=== PATIENT | female | born 1965 | race Caucasian/White ===

== ENCOUNTER 2018-09-07 07:47 | Outpatient (CLI) | payer OTHER ==
[2018-09-07] MEDS ORDERED: IBRERSARTAN PO (08:54)
[2018-09-07] MEDS ORDERED: PLAQUINIL PO (08:54)
[2018-09-07] MEDS ORDERED: MULTIVITAM9 MG/15 M1 PO (08:55)
[2018-09-07] MEDS ORDERED: CALCIUM500 M2 PO (08:56)
== END 2018-09-07 17:34 | disposition home or self-care (01) ==
LOC: LAB 07:47
DX: N62 Hypertrophy of breast (principal)

== ENCOUNTER 2018-09-11 05:50 | Inpatient (IN) | payer OTHER ==
[~2018-09-11] VITALS: Ht 152.4 cm; Wt 80.7 kg
[~2018-09-11 05:50] MED LIST: CALCIUM500 M2 PO; IBRERSARTAN PO; MULTIVITAM9 MG/15 M1 PO; PLAQUINIL PO
== END 2018-09-12 14:31 | disposition home or self-care (01) | DRG 621 ==
LOC: CIR.AMB 05:50 → SURH 16:18 → CIR.AMB 18:01 → SURH 09-12 14:31
PROVIDERS: Plastic Surgery
PROC: 0J083ZZ Alteration of Abdomen Subcutaneous Tissue and Fascia, Percutaneous Approach (ICD-10-PCS; 2018-09-11)
PROC: 0JB80ZZ Excision of Abdomen Subcutaneous Tissue and Fascia, Open Approach (ICD-10-PCS; principal; 2018-09-11 07:00)
PROC: 0HBV0ZZ Excision of Bilateral Breast, Open Approach (ICD-10-PCS; 2018-09-11 07:00)
DX: E65 Localized adiposity (principal); N62 Hypertrophy of breast; M62.08 Separation of muscle (nontraumatic), other site

== ENCOUNTER 2020-03-19 10:33 | Emergency (ER) | payer OTHER ==
[~2020-03-19] VITALS: Ht 152.4 cm; Wt 70.3 kg
[2020-03-19] MEDS ORDERED: KETO10TA2 PO (14:21)
[2020-03-19] MEDS ORDERED: SKELAXIN800 MG PO (14:21)
== END 2020-03-19 14:37 | disposition home or self-care (01) ==
LOC: ER 10:33
DX: S93.492A Sprain of other ligament of left ankle, initial encounter (principal); W10.8XXA Fall (on) (from) other stairs and steps, initial encounter; Y93.89 Activity, other specified; Y92.018 Other place in single-family (private) house as the place of occurrence of the external cause; Y99.8 Other external cause status

== ENCOUNTER 2022-10-30 14:13 | Outpatient (CLI) | payer OTHER ==
[~2022-10-30 14:13] MED LIST changes: +KETO10TA2 PO; +SKELAXIN800 MG PO
== END 2022-10-30 14:57 | disposition home or self-care (01) ==
LOC: RAD 14:13
PROVIDERS: ATTEND Orthopaedic Surgery
DX: M79.671 Pain in right foot (principal); M25.571 Pain in right ankle and joints of right foot

== ENCOUNTER 2024-05-29 10:12 | Inpatient (IN) | payer OTHER ==
[~2024-05-29] VITALS: Ht 152.4 cm; Wt 153.8 kg
[2024-05-29] MEDS ORDERED: MOUNJARO2.5 MG/0.5 SQ (10:17)
[2024-05-29] MEDS ORDERED: KETOROLAC TROMETHAMINE 60 MG VIAL IM ONE ×2 (10:30→10:31)
[2024-05-29] MEDS ORDERED: FAMOtidine 10 MG/ML (4ML VIAL) IV ONE (10:30)
[2024-05-29] MEDS ORDERED: 0.9 % SODIUM CHLORIDE 1,000 ML IV ONE (10:30)
[2024-05-29] MEDS ORDERED: FAMOTIDINE/PF 20 MG/2 ML VIAL ONE (10:31)
[2024-05-29 10:46] LABS: HEMATOCRIT 43.2 % (36.0-45.00); HEMOGLOBIN 14.9 g/dL (12.0-15.00); MEAN CELL VOLUME 93.8 fL (80.00-100.00); MEAN CORPUSCULAR HEMOGLOBIN 32.3 pg (27.00-32.0); MEAN CORPUSCULAR HGB CONC 34.4 g/dl (32.0-36.0); PLATELET COUNT 297 K/uL (150-450); RED BLOOD COUNT 4.61 M/uL (4.00-6.00); RED CELL DISTRIBUTION WIDTH 12.2 % (11.5-14.5)
[2024-05-29 11:16] LABS: ALBUMIN 3.5 gm/dL (3.4-5.0); BILIRUBIN TOTAL 1.02 mg/dL (0.3-1.2); CALCIUM 8.9 mg/dL (8.5-10.1); CREATININE SERUM 0.74 mg/dL (0.55-1.02); GFR 80.89; GLOBULINA 4.1 G/DL (2.4-3.5); POTASSIUM 3.56 mEq/L (3.5-5.1); TOTAL PROTEIN 7.6 gm/dL (6.4-8.2)
[2024-05-29 11:58] LABS: URINE APPEARANCE Clear; URINE BILIRRUBIN Negative (NEGATIVE); URINE BLOOD Moderate; URINE COLOR Yellow; URINE GLUCOSE Negative (NEGATIVE); URINE LEUKOCYTE Trace; URINE NITRATE Negative; URINE PROTEIN Negative (NEGATIVE); URINE UROBILINOGEN 0.2 E.U./dl
[2024-05-29 12:02] LABS: URINE EPITHELIAL CELLS 4.7 uL (0.0-38.8); URINE RBC 163.6 uL (0.0-20.8); URINE WBC 14.3 uL (0.0-23.2)
[2024-05-29 12:14] LABS: URINE BACTERIA 2.5 uL (0.0-1933); URINE KETONE 40 (NEGATIVE)
[2024-05-29 15:50] LABS: INR 1.15; PARTIAL THROMBOPLASTIN TIME 27.9 SECONDS (22.0-34.0); PROTHROMBIN TIME 12.4 SECONDS (9.0-11.5)
[2024-05-29] MEDS ORDERED: BUPIVACAINE HCL/MPF 0.5% 30ML VIAL ONE (19:28)
[2024-05-29] MEDS ORDERED: ONDANSETRON HCL 2 MG/ML VIAL IV PRN ×2 (20:15)
[2024-05-29] MEDS ORDERED: KETOROLAC TROMETHAMINE 30 MG VIAL IV PRN (20:15)
[2024-05-29] MEDS ORDERED: ENALAPRILAT DIHYDRATE 1.25 MG/ML VIAL IV PRN (20:15)
[2024-05-29] MEDS ORDERED: PIPERACILLIN/TAZOBACTAM SODIUM 3.375 GM VIAL IV SCH (21:00)
[2024-05-29] MEDS ORDERED: 0.9 % SODIUM CHLORIDE 1,000 ML IV SCH (21:00)
[2024-05-29] MEDS ORDERED: FAMOTIDINE/PF 20 MG/2 ML VIAL IV SCH (21:00)
[2024-05-29] MEDS ORDERED: BUPIVACAINE HCL 30 ML VIAL IJ ONE (21:00)
[2024-05-29] MEDS ORDERED: ACETAMINOPHEN 500 MG GEL..CAP PO PRN (21:15)
[2024-05-29] MEDS ORDERED: MORPHINE SULFATE 4 MG/ML VIAL IV PRN (21:15)
[2024-05-29] MEDS ORDERED: SUGAMMADEX SODIUM 200 MG/2 ML VIAL IV ONE (21:30)
[2024-05-30] MEDS ORDERED: PIPERACILLIN/TAZOBACTAM SODIUM 3.375 GM in 0.9 % SODIUM CHLORIDE 100 ML IV SCH
[2024-05-30 08:17] LABS: HEMATOCRIT 35.6 % (36.0-45.00); HEMOGLOBIN 12.6 g/dL (12.0-15.00); MEAN CORPUSCULAR HEMOGLOBIN 33.6 pg (27.00-32.0); MEAN CORPUSCULAR HGB CONC 35.4 g/dl (32.0-36.0); PLATELET COUNT 226 K/uL (150-450); RED BLOOD COUNT 3.75 M/uL (4.00-6.00); RED CELL DISTRIBUTION WIDTH 12.4 % (11.5-14.5)
[2024-05-30 08:57] LABS: CALCIUM 7.6 mg/dL (8.5-10.1); CREATININE SERUM 0.62 mg/dL (0.55-1.02); GFR 99.21; POTASSIUM 3.94 mEq/L (3.5-5.1)
[2024-05-30] MEDS ORDERED: FAMOTIDINE/PF 20 MG in 0.9 % SODIUM CHLORIDE 8 ML IV PUSH SCH (09:00)
[2024-05-30] MEDS ORDERED: PIPERACILLIN/TAZOBACTAM SODIUM 3.375 GM VIAL IV ONE ×3 (11:27→22:57)
[2024-05-31] MEDS ORDERED: PIPERACILLIN/TAZOBACTAM SODIUM 3.375 GM VIAL IV ONE ×3 (04:27→16:28)
== END 2024-05-31 23:37 | disposition home or self-care (01) | DRG 331 ==
LOC: ER 10:14 → SURG 16:20 → SEC-K 16:20 → SURG 21:53
PROVIDERS: General Practice; ADMIT Surgery; ATTEND Surgery
PROC: 0DTJ4ZZ Resection of Appendix, Percutaneous Endoscopic Approach (ICD-10-PCS; 2024-05-29)
PROC: 0W9J4ZZ Drainage of Pelvic Cavity, Percutaneous Endoscopic Approach (ICD-10-PCS; 2024-05-29)
PROC: 0WQF4ZZ Repair Abdominal Wall, Percutaneous Endoscopic Approach (ICD-10-PCS; 2024-05-29)
PROC: BW21YZZ Computerized Tomography (CT Scan) of Abdomen and Pelvis using Other Contrast (ICD-10-PCS; 2024-05-29)
PROC: 0DBH4ZZ Excision of Cecum, Percutaneous Endoscopic Approach (ICD-10-PCS; principal; 2024-05-29 18:30)
DX: K35.33 Acute appendicitis with perforation, localized peritonitis, and gangrene, with abscess (principal); K43.9 Ventral hernia without obstruction or gangrene; M32.9 Systemic lupus erythematosus, unspecified